=== PATIENT | male | born 1980 | race Two or more races ===

== ENCOUNTER 2021-04-28 03:31 | Inpatient (IN) | payer MEDICAID ==
[~2021-04-28] VITALS: Ht 175.3 cm; Wt 106.1 kg
--- NOTE | 2021-04-28 03:40 | NUR ---
BIBPA FROM SNF FOR C/O ABDOMINAL DISTENTION. - ABD PAIN. -N/V, LBM: YETSERDAY . PT CAME IN WITH A F/C IN PLACE DRAINING CLEAR YELLOW URINE. NOTED W/ A VERY DISTENTDED ABDOMEN, SWOLLEN FEET AND SCROTUM. PLACED ON AMONITOR W/ STABLE VS. WILL CONT TO MONITOR
--- NOTE | 2021-04-28 03:45 | NUR ---
PATIENT'S BLOOD IS COLLECTED AND SENT TO THE LAB
[2021-04-28 03:57] LABS: LYMPHOCYTES # (AUTO) 0.5 /CMM (0.8-4.8); MONOCYTES # (AUTO) 0.4 /CMM (0.1-1.30); NEUTROPHILS # (AUTO) 1.6 /CMM (1.8-8.9); WHITE BLOOD COUNT (AUTO) 2.6 K/uL (4.3-11.0)
--- NOTE | 2021-04-28 03:59 | NUR ---
PATIENT'S LINEN CHANGED AND PATIENT IS POSITIONED IN A COMFORTABLE WAY.
[2021-04-28 04:00] LABS: BASOPHILS % (AUTO) 0.9 % (0.0-2.0); EOSINOPHILS % (AUTO) 2.5 % (0.0-6.0); HEMATOCRIT 30 % (39-51); HEMOGLOBIN 9.8 g/dL (13.5-17.5); LYMPHOCYTES % (AUTO) 19.5 % (20.0-44.0); MEAN CORPUSCULAR HGB CONC 33 g/dl (31.0-36.0); MEAN CORPUSCULAR VOLUME 86 fL (80-96); MONOCYTES % (AUTO) 15.6 % (2.0-12.0); NEUTROPHILS % (AUTO) 61.5 % (43.0-81.0); RED BLOOD CELL COUNT(AUTO) 3.47 MIL/uL (4.5-6.0)
--- NOTE | 2021-04-28 04:02 | NUR ---
covid swab collected and sent to lab
[2021-04-28 04:03] LABS: PLATELET COUNT (AUTO) 37 /CMM (150-450)
[2021-04-28 04:10] LABS: CALCIUM, SERUM 7.8 mg/dL (8.5-10.1); CREATININE 0.7 mg/dL (0.6-1.3); POTASSIUM 3.8 mmol/L (3.5-5.1)
[2021-04-28 04:16] LABS: ALBUMIN 1.9 g/dL (3.4-5.0); BILIRUBIN,DIRECT 0.5 mg/dL (0.0-0.2); TOTAL PROTEIN, SERUM 6.6 g/dL (6.4-8.2)
--- NOTE | 2021-04-28 04:40 | NUR ---
PANEL PAGED PER ER MD ORDER.
[2021-04-28 04:50] LABS: EOSINOPHILS % (MANUAL) 4 % (0-4); LYMPHOCYTES % (MANUAL) 15 % (16-48); MONOCYTES % (MANUAL) 12 % (0-11.0); NEUTROPHILS % (MANUAL) 69 (42-76)
[2021-04-28] MEDS ORDERED: LORAZEPAM INJ 2 MG/ML VIAL ONE (05:37)
[2021-04-28] MEDS ORDERED: ALBUMIN 25% 100 ML IV ONE (05:44)
[2021-04-28] MEDS ORDERED: ALBUMIN 25% 12.5 GM/50 ML BOTTLE IV ONE (06:00)
[2021-04-28] MEDS ORDERED: LORAZEPAM INJ 2 MG/ML VIAL IV ONE (06:00)
--- NOTE | 2021-04-28 06:30 | NUR ---
Ke payton in [facility] - 04/28/21 at 0631 by SP [id number] CALLED REGARDING TRANSPORT ([facility]) ETA 2HRS.
--- NOTE | 2021-04-28 06:40 | NUR ---
PT WAS REPORISTIONED IN BED, REMAINED CLEAN, COMFORTABLE AND DRY, SIDERAILS UP. CALL LIGHT WITHIN REACH. WILL CONT TO MONITOR,
[2021-04-28] MEDS ORDERED: LORA-259 PO (07:42)
[2021-04-28] MEDS ORDERED: FURO-144 PO (07:42)
[2021-04-28] MEDS ORDERED: ONDA4TAB11 PO (07:42)
[2021-04-28] MEDS ORDERED: CALC355O18 PO (07:42)
[2021-04-28] MEDS ORDERED: SPIR50TA5 PO (07:42)
[2021-04-28] MEDS ORDERED: POLY17PO4 PO (07:42)
[2021-04-28] MEDS ORDERED: FAMO20TA8 PO (07:42)
[2021-04-28] MEDS ORDERED: BISA10SU11 RC (07:42)
[2021-04-28] MEDS ORDERED: NA P133E RC (07:42)
[2021-04-28] MEDS ORDERED: RIFA550T PO (07:42)
[2021-04-28] MEDS ORDERED: ZOLP5TAB2 PO (07:42)
[2021-04-28] MEDS ORDERED: LOPE2TAB25 PO (07:42)
[2021-04-28] MEDS ORDERED: LACT10SO3 PO (07:42)
[2021-04-28] MEDS ORDERED: CYCL5TAB PO (07:42)
[2021-04-28] MEDS ORDERED: MAGN400O6 PO (07:42)
[2021-04-28] MEDS ORDERED: [UNRECOGNIZED DRUG - CODE] PO (07:42)
[2021-04-28] MEDS ORDERED: ACET325T53 PO (07:42)
[2021-04-28] MEDS ORDERED: CRAN425C6 PO (07:42)
[2021-04-28] MEDS ORDERED: OLAN2.5T3 PO (07:42)
--- NOTE | 2021-04-28 07:52 | NUR ---
PATIENT'S LEGS REPOSITIONED. PATIENT'S C/O ABDOMINAL AND FOOT PAIN. INFORMED DR. KIM.
[2021-04-28] MEDS ORDERED: HYDROCODONE/APAP 5/325MG TABLET ONE (07:59)
[2021-04-28] MEDS ORDERED: HYDROCODONE/APAP 5/325MG TABLET PO ONE (08:00)
--- NOTE | 2021-04-28 08:23 | NUR ---
REPORT GIVEN TO SOON RN FOR NIYA.
[2021-04-28] MEDS ORDERED: ACETAMINOPHEN 325 MG TABLET PO PRN (10:30)
[2021-04-28] MEDS ORDERED: ONDANSETRON HCL/PF 4 MG/2 ML VIAL IVP PRN (10:30)
[2021-04-28] MEDS ORDERED: MORPHINE SULFATE INJ 2 MG/ML DISP.SYRIN IV PRN (10:30)
[2021-04-28] MEDS ORDERED: MAG HYDROX/AL HYDROX/SIMETH 30 ML UDC PO PRN (10:30)
[2021-04-28] MEDS ORDERED: MAGNESIUM HYDROXIDE 30 ML UDC PO PRN (10:30)
[2021-04-28] MEDS ORDERED: ENOXAPARIN SODIUM 40 MG/0.4 ML DISP.SYRIN SQ SCH (10:30)
[2021-04-28] MEDS ORDERED: CYCLOBENZAPRINE 10 MG TABLET PO PRN (11:30)
[2021-04-28 12:07] VITALS: BP 132/90
[2021-04-28 12:23] VITALS: BP 132/90
[2021-04-28 12:28] VITALS: BP 132/90
[2021-04-28] MEDS ORDERED: FUROSEMIDE 20 MG/2 ML VIAL IV ONE (12:30)
--- NOTE | 2021-04-28 13:17 | NUR ---
paracentesis 6 liters obtained,Angelito SCHWARTZ stated that no studies this was therapeutic not diagnostic primary nurse was notified
[2021-04-28 13:24] VITALS: BP 130/89
[2021-04-28 13:25] VITALS: BP 132/88
--- NOTE | 2021-04-28 15:42 | NUR ---
RN Notes Received patient on gurney transfer to bed, paracentisis performed by isauro and 6 L withdrawn, had no orders for labs or diagnosits of fluid, fluid placed into Bio Hazard Red Bags and Red Bio Hazard Trash can , resident requested pain medication and give one [place] effective, patient rested peacefully after procedure and was able to use call light and phone to make needs known, no SOB , no distress noted, given liquids for rehydration, compliant no aspirations noted, call light in reach will continue to monitor VS which were being performed and all VS remaining in a base line range, Father contacted to ask to 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
[2021-04-28] MEDS: RIFAXIMIN 550 MG TABLET PO SCH (17:21)
[2021-04-28] MEDS: OLANZAPINE 2.5 MG TABLET PO SCH (17:24)
[2021-04-28] MEDS: LACTULOSE 10 G/15 ML UDC (PYXIS) PO SCH (17:25)
[2021-04-28 20:00] VITALS: BP 135/89
[2021-04-28] MEDS: ZOLPIDEM TARTRATE 5 MG TABLET PO SCH (21:20)
--- NOTE | 2021-04-29 03:46 | NUR ---
RN notes In bed resting comfortably with no distress noted. Breathing even and unlabored. On 2 lpm O2 via nasal cannula tolerating well. Alert and oriented, with difficulty of speaking but well understood. Complaining of generalized pain, reposition for comfort. Noted with distended abdomen. No significant change of condition. Kept clean and dry. Will endorse to next shift for continuity of care.
[2021-04-29 04:00] VITALS: BP 123/78
[2021-04-29] MEDS: LORAZEPAM 1 MG TABLET PO PRN ×2 (06:18→12:59)
--- NOTE | 2021-04-29 06:18 | NUR ---
RN notes Patient requested ativan, he feels he is having an anxiety attack. Gave 0.5mg ativan tablet, with help.
[2021-04-29 06:39] LABS: CALCIUM, SERUM 7.9 mg/dL (8.5-10.1); CREATININE 0.6 mg/dL (0.6-1.3); MAGNESIUM 1.7 mg/dL (1.8-2.4)
[2021-04-29 06:40] LABS: BASOPHILS % (AUTO) 0.8 % (0.0-2.0); EOSINOPHILS % (AUTO) 3.8 % (0.0-6.0); HEMATOCRIT 28 % (39-51); LYMPHOCYTES # (AUTO) 0.3 /CMM (0.8-4.8); LYMPHOCYTES % (AUTO) 27.2 % (20.0-44.0); MEAN CORPUSCULAR HGB CONC 33 g/dl (31.0-36.0); MEAN CORPUSCULAR VOLUME 87 fL (80-96); MONOCYTES # (AUTO) 0.2 /CMM (0.1-1.30); MONOCYTES % (AUTO) 16.4 % (2.0-12.0); NEUTROPHILS # (AUTO) 0.6 /CMM (1.8-8.9); NEUTROPHILS % (AUTO) 51.8 % (43.0-81.0); RED BLOOD CELL COUNT(AUTO) 3.16 MIL/uL (4.5-6.0)
[2021-04-29 06:49] LABS: WHITE BLOOD COUNT (AUTO) 1.2 K/uL (4.3-11.0)
[2021-04-29 06:50] LABS: PLATELET COUNT (AUTO) 34 /CMM (150-450)
--- NOTE | 2021-04-29 06:51 | NUR ---
RN notes ultrasound technol called regarding critical lab results for WBC = 1.0 and Platelet count = 1
--- NOTE | 2021-04-29 07:41 | NUR ---
RN Notes RECEIVED PATIENT IN BED AWAKE ALERT X 3, ABLE TO MAKE NEEDS KNOWN, STATED VERY HUNGRY - ENDORSED TO PARK WORKER SUPERVISOR DORY TO FEED SONY, HEALTHY APPETITE, I HELPED TO FEED NO ASPIRATIONS NOTED, HOB RAISED 90 %, ALL SAFETY MEASURES ENFORCED AND EDUCATED PATIENT NOT TO TRY TO GET UP WITHOUT HELP, CALL LIGHT IN REACH, WILL CONTINUE TO MONITOR LOW WBC AND LOW PLT COUNT NOTED.
--- NOTE | 2021-04-29 07:49 | NUR ---
RN NOTES PATIENT NOW ENDORSED TO ANOTHER RN CATHY , NOW ASSIGNED TO PATIENT 119
--- NOTE | 2021-04-29 07:50 | NUR ---
RN NOTES RECEIVED REPORT FROM CHARANJIT PARKER. WILL CONTINUE TO MONITOR FOR NIYA.
[2021-04-29] MEDS: SPIRONOLACTONE 25 MG TABLET PO SCH (08:56)
[2021-04-29] MEDS: PANTOPRAZOLE 40 MG TABLET.DR PO SCH (08:56)
[2021-04-29] MEDS: RIFAXIMIN 550 MG TABLET PO SCH ×2 (08:57→17:00)
[2021-04-29] MEDS: LACTULOSE 10 G/15 ML UDC (PYXIS) PO SCH ×2 (08:57→17:00)
[2021-04-29] MEDS: OLANZAPINE 2.5 MG TABLET PO SCH ×2 (08:57→17:00)
[2021-04-29 09:22] LABS: EOSINOPHILS % (MANUAL) 1 % (0-4); LYMPHOCYTES % (MANUAL) 12 % (16-48); MONOCYTES % (MANUAL) 13 % (0-11.0); NEUTROPHILS % (MANUAL) 74 (42-76)
[2021-04-29] MEDS: HYDROCODONE/APAP 5/325MG TABLET PO PRN ×2 (09:52→20:18)
[2021-04-29] MEDS: FUROSEMIDE 40 MG/4 ML VIAL IV SCH (11:43)
[2021-04-29 12:00] VITALS: BP 108/64
[2021-04-29] MEDS: Magnesium 1GM/D5W 100ML PREMIX 100 ML IV SCH ×2 (13:04→14:11)
--- NOTE | 2021-04-29 18:57 | NUR ---
RN CLOSING NOTES NO SIGNIFICANT CHANGES THROUGHOUT THE SHIFT. NO SOB OR ANY DISTRESS. NO PAIN REPORTED AT THIS TIME. IN STABLE CONDITION. ALL DUE MEDS GIVEN. NEEDS ATTENDED. SAFETY MEASURES STILL IN PLACE. WILL ENDORSE TO NIGHT NURSE FOR NIYA.
--- NOTE | 2021-04-29 19:15 | NUR ---
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 NO ANSWER. TRIED 3X. STILL NO ANSWER. VOICE MESSAGE UNAVAILABLE. ENDORSED TO NIGHT RN.
--- NOTE | 2021-04-29 19:30 | NUR ---
RN NOTE RECEIVED IN BED, AO X 3-4, SLOW SPEECH, BUT AWARE OF SITUATION, IN NO S/SX OF ACUTE DISTRESS AT THIS TIME, SATURATION AT 97% ON 2L VIA NC, HR IS 94. NOTED IV SITE AT RFA 18G, PATENT AND FLUSHING WELL, NO S/S OF INFECTION OR INFILTRATION. MUNGUIA CATHETER CONNECTED TO URINE BAG IN PLACE, DRAINING TO A CLEAR YELLOW OUTPUT. SAFETY MEASURES IMPLEMENTED. PATIENT BED ALARM IS ON. HEAD OF BED ELEVATED. BED IS LOCKED, IN LOWEST POSITION AND SIDE RAILS UP. CALL LIGHT WITHIN REACH OF THE PATIENT. WILL CONTINUE TO MONITOR AND REASSESS FOR ANY CHANGES.
[2021-04-29 20:00] VITALS: BP 139/92
[2021-04-29] MEDS: ZOLPIDEM TARTRATE 5 MG TABLET PO SCH (22:27)
[2021-04-30] MEDS: HYDROCODONE/APAP 5/325MG TABLET PO PRN ×2 (02:04→08:19)
[2021-04-30 04:00] VITALS: BP 143/85
[2021-04-30] MEDS: LORAZEPAM 1 MG TABLET PO PRN ×4 (06:18→23:08)
[2021-04-30 06:45] LABS: BASOPHILS % (AUTO) 0.2 % (0.0-2.0); EOSINOPHILS % (AUTO) 1.8 % (0.0-6.0); HEMATOCRIT 29 % (39-51); HEMOGLOBIN 9.6 g/dL (13.5-17.5); LYMPHOCYTES # (AUTO) 0.4 /CMM (0.8-4.8); LYMPHOCYTES % (AUTO) 14.4 % (20.0-44.0); MEAN CORPUSCULAR HGB CONC 33 g/dl (31.0-36.0); MEAN CORPUSCULAR VOLUME 87 fL (80-96); MONOCYTES # (AUTO) 0.4 /CMM (0.1-1.30); MONOCYTES % (AUTO) 16.5 % (2.0-12.0); NEUTROPHILS # (AUTO) 1.7 /CMM (1.8-8.9); NEUTROPHILS % (AUTO) 67.1 % (43.0-81.0); RED BLOOD CELL COUNT(AUTO) 3.35 MIL/uL (4.5-6.0); WHITE BLOOD COUNT (AUTO) 2.6 K/uL (4.3-11.0)
[2021-04-30 06:52] LABS: CALCIUM, SERUM 8.4 mg/dL (8.5-10.1); CREATININE 0.7 mg/dL (0.6-1.3); MAGNESIUM 1.7 mg/dL (1.8-2.4); POTASSIUM 4.1 mmol/L (3.5-5.1)
[2021-04-30 07:14] LABS: PLATELET COUNT (AUTO) 36 /CMM (150-450)
--- NOTE | 2021-04-30 08:00 | NUR ---
RN OPENING NOTE RECEIVED PATIENT IN BED, AO X 3-4, ABLE TO RESPONDS ALL STIMULI. SKIN IS WARM TO TOUCH KEEP CLEAN/DRY, INTACT IV SITE, PATIENT IN MUNGUIA. RESPIRATORY EVEN AND UNLABORED IN ROOM AIR, NO DISTRESS OBSERVED. KEPT ELEVATED HOB FOR ENSURE AIRWAY AND ASPIRATION PRECAUTION, ALSO LOWEST BED POSITION FOE SAFETY. CALL LIGHT WITHIN REACH, WILL CONTINUE TO MONITOR.
[2021-04-30] MEDS: RIFAXIMIN 550 MG TABLET PO SCH ×2 (08:19→17:03)
[2021-04-30] MEDS: OLANZAPINE 2.5 MG TABLET PO SCH ×2 (08:20→17:03)
[2021-04-30] MEDS: PANTOPRAZOLE 40 MG TABLET.DR PO SCH (08:20)
[2021-04-30] MEDS: SPIRONOLACTONE 25 MG TABLET PO SCH (08:20)
[2021-04-30] MEDS: FUROSEMIDE 40 MG/4 ML VIAL IV SCH (08:25)
[2021-04-30] MEDS: LACTULOSE 10 G/15 ML UDC (PYXIS) PO SCH ×2 (08:26→17:00)
[2021-04-30 09:04] LABS: EOSINOPHILS % (MANUAL) 2 % (0-4); LYMPHOCYTES % (MANUAL) 11 % (16-48); MONOCYTES % (MANUAL) 16 % (0-11.0); NEUTROPHILS % (MANUAL) 71 (42-76)
--- NOTE | 2021-04-30 09:30 | NUR ---
PATIENT REFUSED LACTULOSE AND MD SAMARIA MADE AWARE,
--- NOTE | 2021-04-30 10:37 | NUR ---
PATIENT C/O DISCOMFORT WHEN PATIENT URINATE, MD AWARE AND PLACED ORDER UA. NOTED AND CARRIED OUT.
[2021-04-30] MEDS: Magnesium 1GM/D5W 100ML PREMIX 100 ML IV SCH ×2 (11:31→12:22)
[2021-04-30 12:00] VITALS: BP 144/96
[2021-04-30 13:37] LABS: COLOR,URINE YELLOW (YELLOW)
[2021-04-30 13:38] LABS: PROTEIN,URINE 100 mg/dl (NEGATIVE); UGLUCOSE NEGATIVE (NEGATIVE)
[2021-04-30 13:39] LABS: BILIRUBIN,URINE NEGATIVE (NEGATIVE)
[2021-04-30 13:40] LABS: NITRITE, URINE POSITIVE (NEGATIVE); UROBILINOGEN,URINE 0.2 EU/dL (0.2)
[2021-04-30 13:41] LABS: LEUKOCYTE ESTERASE ,URINE MODERATE (NEGATIVE)
[2021-04-30 13:51] LABS: BACTERIA,URINE 4+ /HPF (None Seen); RBC,URINE F /HPF (0-2); WBC,URINE F /HPF (0-3)
[2021-04-30 13:52] LABS: SQUAMOUS EPITHELIAL CELL,UR Rare /HPF (None Seen)
--- NOTE | 2021-04-30 16:52 | NUR ---
PATIENT CONFUSE AND REMOVED IV LINE AND PULLING PUT MUNGUIA CAHTE, ALSO ATTEMPTING OUT OF THE BED. RECEIVED SOFT WRIST RESTRAINTS. PATIENT RECEIVED LOVENOX FOR DVT PROPHYLAXIS.
[2021-04-30] MEDS: CEFTRIAXONE 1 G in IV D5W 50 ML IV SCH (17:03)
--- NOTE | 2021-04-30 18:27 | NUR ---
RN CLOSING NOTE PATIENT RESTING IN BED, REMAINS AO X 3-4, DOES NO APPEARS DISTRESS OR DISCOMFORT. SKIN IS WARM TOUCH, KEEP CLEAN/DRY. RESPIRATORY EVEN AND UNLABORED IN ROOM AIR O2SAT 95%. KEPT ELEVATED HOB FOR ENSURE AIRWAY AND ASPIRATION PRECAUTION, ALSO LOWEST BED POSITION FOR SAFETY. CALL LIGHT WITHIN REACH, WILL ENDORSE WAX BLENDER.
--- NOTE | 2021-04-30 19:00 | NUR ---
RN NOTE RECEIVED IN BED, AO X 3-4, SLOW SPEECH, IN NO S/SX OF ACUTE DISTRESS AT THIS TIME, SATURATION AT 97% ON 2L VIA NC, HR IS 94. NOTED IV SITE AT RFA 18G, PATENT AND FLUSHING WELL, NO S/S OF INFECTION OR INFILTRATION. MUNGUIA CATHETER CONNECTED TO URINE BAG IN PLACE, DRAINING TO A CLEAR YELLOW OUTPUT. SAFETY MEASURES IMPLEMENTED. PATIENT BED ALARM IS ON. HEAD OF BED ELEVATED. BED IS LOCKED, IN LOWEST POSITION AND SIDE RAILS UP. CALL LIGHT WITHIN REACH OF THE PATIENT. WILL CONTINUE TO MONITOR AND REASSESS FOR ANY CHANGES.
[2021-04-30 20:00] VITALS: BP 131/83
[2021-04-30] MEDS: ZOLPIDEM TARTRATE 5 MG TABLET PO SCH (21:17)
[2021-05-01] MEDS: HYDROCODONE/APAP 5/325MG TABLET PO PRN ×2 (00:50→13:07)
[2021-05-01 04:00] VITALS: BP 138/62
[2021-05-01 06:02] LABS: BASOPHILS % (AUTO) 0.3 % (0.0-2.0); EOSINOPHILS % (AUTO) 1.7 % (0.0-6.0); HEMATOCRIT 25 % (39-51); HEMOGLOBIN 8.3 g/dL (13.5-17.5); LYMPHOCYTES # (AUTO) 0.5 /CMM (0.8-4.8); LYMPHOCYTES % (AUTO) 17.4 % (20.0-44.0); MEAN CORPUSCULAR HGB CONC 33 g/dl (31.0-36.0); MEAN CORPUSCULAR VOLUME 86 fL (80-96); MONOCYTES # (AUTO) 0.5 /CMM (0.1-1.30); MONOCYTES % (AUTO) 17.6 % (2.0-12.0); NEUTROPHILS # (AUTO) 1.8 /CMM (1.8-8.9); RED BLOOD CELL COUNT(AUTO) 2.89 MIL/uL (4.5-6.0); WHITE BLOOD COUNT (AUTO) 2.8 K/uL (4.3-11.0)
[2021-05-01 06:24] LABS: PLATELET COUNT (AUTO) 32 /CMM (150-450)
[2021-05-01 06:46] LABS: CALCIUM, SERUM 7.9 mg/dL (8.5-10.1); CREATININE 0.9 mg/dL (0.6-1.3); MAGNESIUM 1.7 mg/dL (1.8-2.4); POTASSIUM 4.2 mmol/L (3.5-5.1)
[2021-05-01 08:03] LABS: EOSINOPHILS % (MANUAL) 4 % (0-4); LYMPHOCYTES % (MANUAL) 12 % (16-48); MONOCYTES % (MANUAL) 16 % (0-11.0); NEUTROPHILS % (MANUAL) 68 (42-76)
[2021-05-01] MEDS: OLANZAPINE 2.5 MG TABLET PO SCH ×2 (08:11→16:21)
[2021-05-01] MEDS: RIFAXIMIN 550 MG TABLET PO SCH ×2 (08:11→16:21)
[2021-05-01] MEDS: PANTOPRAZOLE 40 MG TABLET.DR PO SCH (08:11)
[2021-05-01] MEDS: SPIRONOLACTONE 25 MG TABLET PO SCH (08:11)
[2021-05-01] MEDS: LACTULOSE 10 G/15 ML UDC (PYXIS) PO SCH ×2 (08:15→16:22)
[2021-05-01] MEDS: FUROSEMIDE 40 MG/4 ML VIAL IV SCH (08:16)
--- NOTE | 2021-05-01 08:17 | NUR ---
ms rn note Patient in bed alert oriented, on ra at this time no sob noted, rt fa hl not working well , having breakfast, fed by rn new hl on rt fa ambrose 22 inserted with good blood return, bed in lowest and locked position, call light within reach , with Garner cath to gravity ,refused to have lactulose and Lasix, will inform to md ,bed in lowest and locked position, will cont to monitor closely
--- NOTE | 2021-05-01 09:44 | NUR ---
MS RN NOTE DOPPLER STUDY DONE ORDERED, WILL F\U WITH RESULT
[2021-05-01] MEDS: LORAZEPAM 1 MG TABLET PO PRN ×2 (10:07→17:09)
--- NOTE | 2021-05-01 11:00 | NUR ---
ms rn note Ativan po give for anxiety, bp 1312/71, saturation 95% ,will monitor
[2021-05-01] MEDS: Magnesium 1GM/D5W 100ML PREMIX 100 ML IV SCH ×2 (11:34→12:37)
--- NOTE | 2021-05-01 14:10 | NUR ---
MS RN NOTE DEVON RN LONE LEAD LINEMAN AT BEDSIDE NOTIFIED THAT REFUSING LASIX AND LACTULOSE ALSO HAVE EARLIER ATIVAN AND NORCO GIVEN ORDERED
[2021-05-01 16:00] VITALS: BP 145/83
[2021-05-01] MEDS: CEFTRIAXONE 1 G in IV D5W 50 ML IV SCH (16:21)
--- NOTE | 2021-05-01 17:26 | NUR ---
ms rn note rt fa ambrose 20 hl inserted with good blood return , also Ativan 0.5 mg po given as ordered for anxiety bp 145/83 saturation 94% ,will cont to monitor turn reposition, all needs attended
--- NOTE | 2021-05-01 18:37 | NUR ---
MS RN NOTE PATIENT IN BED ,ALERT ORIENTED ON RA , WITH MUNGUIA CATH TO GRAVITY WITH YELLOW ABRIL COLOR , RT FA HL INTACT AND FLUSHED WELL , BED IN LOWEST AND LOCKED POSITION , CALL LIGHT WITHIN REACH,NO SOB NOTED AT THIS TIME, WILL CONT TO MONITOR
--- NOTE | 2021-05-01 19:50 | NUR ---
RN NOTE RECEIVED PT IN BED A/A/O X3, ON RA SATING 95%, UNLABORED BREATHING. SAFETY MEASURES IN PLACE.
[2021-05-01 20:00] VITALS: BP 146/77
[2021-05-01] MEDS: ZOLPIDEM TARTRATE 5 MG TABLET PO SCH (21:25)
[2021-05-02] MEDS: LORAZEPAM 1 MG TABLET PO PRN ×2 (00:02→11:45)
[2021-05-02 04:00] VITALS: BP 130/72
[2021-05-02 05:52] LABS: BASOPHILS % (AUTO) 0.4 % (0.0-2.0); EOSINOPHILS % (AUTO) 1.6 % (0.0-6.0); HEMATOCRIT 26 % (39-51); HEMOGLOBIN 8.4 g/dL (13.5-17.5); LYMPHOCYTES # (AUTO) 0.4 /CMM (0.8-4.8); LYMPHOCYTES % (AUTO) 15.9 % (20.0-44.0); MEAN CORPUSCULAR HGB CONC 33 g/dl (31.0-36.0); MEAN CORPUSCULAR VOLUME 87 fL (80-96); MONOCYTES # (AUTO) 0.4 /CMM (0.1-1.30); MONOCYTES % (AUTO) 16.4 % (2.0-12.0); NEUTROPHILS # (AUTO) 1.5 /CMM (1.8-8.9); NEUTROPHILS % (AUTO) 65.7 % (43.0-81.0); RED BLOOD CELL COUNT(AUTO) 2.98 MIL/uL (4.5-6.0); WHITE BLOOD COUNT (AUTO) 2.3 K/uL (4.3-11.0)
[2021-05-02 06:26] LABS: PLATELET COUNT (AUTO) 31 /CMM (150-450)
[2021-05-02 06:32] LABS: CALCIUM, SERUM 7.8 mg/dL (8.5-10.1); CREATININE 0.8 mg/dL (0.6-1.3); MAGNESIUM 1.8 mg/dL (1.8-2.4)
--- NOTE | 2021-05-02 06:39 | NUR ---
RECEIVED CRITICAL LAB PLT [address] HARTMAN NO NEW ORDER AT THIS TIME.
--- NOTE | 2021-05-02 07:26 | NUR ---
PT REMAINED STABLE THROUGHOUT THE SHIFT. REPORT GIVEN TO ONCOMING SHIFT FOR NIYA.
--- NOTE | 2021-05-02 07:35 | NUR ---
RN NOTE PATIENT IS IN BED WITH HOB AT SEMI FOWLERS POSITION. PATIENT IS ON ROOM AIR WITH NO SIGNS OF LABORED BREATHING. PATIENT IS AOX3. MUNGUIA IS IN PLACE. RFA 20 IS PATENT AND INTACT. BED IS LOCKED IN THE LOWEST POSITION, 3 GUARD RAILS RAISED, CALL VELASCO WITHIN REACH AND ALL HOSPITAL SAFETY PRECAUTIONS ARE BEING FOLLOWED. WILL CONTINUE TO MONITOR THROUGHOUT SHIFT.
[2021-05-02 08:00] VITALS: BP 124/92
[2021-05-02] MEDS: RIFAXIMIN 550 MG TABLET PO SCH (08:17)
[2021-05-02] MEDS: PANTOPRAZOLE 40 MG TABLET.DR PO SCH (08:18)
[2021-05-02] MEDS: OLANZAPINE 2.5 MG TABLET PO SCH (08:18)
[2021-05-02] MEDS: SPIRONOLACTONE 25 MG TABLET PO SCH (08:27)
[2021-05-02] MEDS: FUROSEMIDE 40 MG/4 ML VIAL IV SCH (08:27)
[2021-05-02] MEDS: LACTULOSE 10 G/15 ML UDC (PYXIS) PO SCH (08:28)
--- NOTE | 2021-05-02 08:28 | NUR ---
rn note patient refused lactulose, lasix, and spironolactone. educated patient on importance of medication adherence and potential side effects on noncompliance. patient still refused.
[2021-05-02 11:16] LABS: BAND % (MANUAL) 3 % (0.0-5.0); EOSINOPHILS % (MANUAL) 2 % (0-4); LYMPHOCYTES % (MANUAL) 14 % (16-48); MONOCYTES % (MANUAL) 12 % (0-11.0); NEUTROPHILS % (MANUAL) 69 (42-76)
[2021-05-02] MEDS: HYDROCODONE/APAP 5/325MG TABLET PO PRN (13:33)
--- NOTE | 2021-05-02 13:46 | NUR ---
rn note report called to pattie fregoso. awaiting ambulance pickup.
[2021-05-02] MEDS ORDERED: CEFT1VIA15 IV (14:18)
== END 2021-05-02 15:38 ==
LOC: ER 03:36 → MEDSG1 08:21
PROVIDERS: ADMIT Nurse Practitioner Family; ATTEND Nurse Practitioner Family
PROC: 0W9G3ZZ Drainage of Peritoneal Cavity, Percutaneous Approach (ICD-10-PCS; principal; 2021-04-28)
DX: K74.60 Unspecified cirrhosis of liver (principal); E43 Unspecified severe protein-calorie malnutrition; D69.6 Thrombocytopenia, unspecified; E72.20 Disorder of urea cycle metabolism, unspecified; K76.6 Portal hypertension; E83.51 Hypocalcemia; G20 Parkinson's disease; E83.01 Wilson's disease; R18.8 Other ascites; E87.1 Hypo-osmolality and hyponatremia; F25.9 Schizoaffective disorder, unspecified; D64.9 Anemia, unspecified; Z86.73 Personal history of transient ischemic attack (TIA), and cerebral infarction without residual deficits; Z68.33 Body mass index [BMI] 33.0-33.9, adult; N39.0 Urinary tract infection, site not specified; Z20.822 Contact with and (suspected) exposure to COVID-19; R13.10 Dysphagia, unspecified; M62.562 Muscle wasting and atrophy, not elsewhere classified, left lower leg; M62.561 Muscle wasting and atrophy, not elsewhere classified, right lower leg; Z79.899 Other long term (current) drug therapy
CPT/HCPCS: 36415; 76942-TC; 80048-TC; 80076-TC; 81001; 82140-TC; 83735-TC; 85025-TC; 85730-TC; 87081-TC; 87086-TC; 92526; 92611-TC; 93970-TC; C9803; G0378; J0696; J1940; J2060; J3475; J7050; J7060; P9047

== ENCOUNTER 2021-06-23 13:19 | Inpatient (IN) | payer MEDICAID, OTHER ==
[~2021-06-23] VITALS: Ht 167.6 cm; Wt 88.0 kg
[~2021-06-23 13:19] MED LIST: ACET325T53 PO; BISA10SU11 RC; CALC355O18 PO; CEFT1VIA15 IV; CRAN425C6 PO; CYCL5TAB PO; FAMO20TA8 PO; FURO-144 PO; LACT10SO3 PO; LOPE2TAB25 PO; LORA-259 PO; MAGN400O6 PO; NA P133E RC; OLAN2.5T3 PO; ONDA4TAB11 PO; POLY17PO4 PO; RIFA550T PO; SPIR50TA5 PO; ZOLP5TAB2 PO; [UNRECOGNIZED DRUG - CODE] PO
--- NOTE | 2021-06-23 13:40 | NUR ---
STARTED IV ON RFA G 18, BLOOD SPECIMEN COLLECTED AND SENT TO THE LAB
--- NOTE | 2021-06-23 13:43 | NUR ---
THE PATIENT IS BIB PA FROM SNF FOR FOR ABDOMINAL PAIN, NAUSEA AND VOMITTING X LAST NIGHT. ABDOMEN NOTED TO BE DISTEDED. IN ROOM AIR AND DENIES SOB. RESPIRATION REGULAR AND UNLABORED. WILL CONTINUE TO MONITOR
[2021-06-23] MEDS ORDERED: HYDR-3976 PO (13:46)
--- NOTE | 2021-06-23 14:02 | NUR ---
UNABLE TO COLLECT URINE DUE TO PATIENT BEING INCONTINENT. DR ADAMS AWARE AND PER MD NO NEED TO DO IN AND OUT CATHETER AND NO NEED TO COLLECT URINE.
[2021-06-23 14:05] LABS: HEMOGLOBIN 11.1 g/dL (13.5-17.5); LYMPHOCYTES # (AUTO) 0.4 K/uL (0.8-4.8)
[2021-06-23 14:09] LABS: BASOPHILS % (AUTO) 0.2 % (0.0-2.0); EOSINOPHILS % (AUTO) 0.2 % (0.0-6.0); HEMATOCRIT 34 % (39-51); LYMPHOCYTES % (AUTO) 6.5 % (20.0-44.0); MEAN CORPUSCULAR HGB CONC 33 g/dl (31.0-36.0); MEAN CORPUSCULAR VOLUME 87 fL (80-96); MONOCYTES # (AUTO) 0.7 K/uL (0.1-1.30); MONOCYTES % (AUTO) 11.3 % (2.0-12.0); NEUTROPHILS # (AUTO) 5.3 K/uL (1.8-8.9); NEUTROPHILS % (AUTO) 81.8 % (43.0-81.0); RED BLOOD CELL COUNT(AUTO) 3.84 MIL/uL (4.5-6.0); WHITE BLOOD COUNT (AUTO) 6.5 K/uL (4.3-11.0)
[2021-06-23 14:12] LABS: PLATELET COUNT (AUTO) 36 K/uL (150-450)
[2021-06-23 14:24] LABS: CALCIUM, SERUM 8.4 mg/dL (8.5-10.1); CARBON DIOXIDE 25 mmol/L (21-32); CHLORIDE 106 mmol/L (98-107); CREATININE 0.7 mg/dL (0.6-1.3); GLUCOSE 105 mg/dL (74-106); POTASSIUM 3.1 mmol/L (3.5-5.1); SODIUM SERUM 140 mmol/L (136-145); UREA NITROGEN, BLOOD 25 mg/dL (7-18)
[2021-06-23 14:26] LABS: SERUM AMMONIA 28 umol/L (11-32)
[2021-06-23 14:30] LABS: ALANINE AMINOTRANSFERASE 34 U/L (12-78); ALKALINE PHOSPHATASE 200 U/L (46-116); ASPARTATE AMINOTRANSFERASE 50 U/L (15-37); BILIRUBIN,DIRECT 2.1 mg/dL (0.0-0.2); BILIRUBIN,TOTAL 3.7 mg/dL (0.2-1.0); LIPASE 168 U/L (73-393); TOTAL PROTEIN, SERUM 7.1 g/dL (6.4-8.2)
--- NOTE | 2021-06-23 15:06 | NUR ---
PARACENTESIS NOT PERFORMED DUE TO LOW PLATLET COUNT, ER DR. ADAMS IS AWARE
--- NOTE | 2021-06-23 15:08 | NUR ---
THE PATIENT IS TAKEN TO CT
--- NOTE | 2021-06-23 15:09 | NUR ---
ZOFRAN 4 MG IV ONCE PER DR ADAMS. THE ORDER READ BACK, VERIFIED AND NOTED.
[2021-06-23 15:10] LABS: LYMPHOCYTES % (MANUAL) 9 % (16-48); MONOCYTES % (MANUAL) 9 % (0-11.0); NEUTROPHILS % (MANUAL) 82 (42-76)
--- NOTE | 2021-06-23 15:16 | NUR ---
THE PATIENT IS BACK FROM CT IN STABLE CONDITION.
[2021-06-23] MEDS ORDERED: ONDANSETRON HCL/PF 4 MG/2 ML VIAL ONE (15:18)
[2021-06-23] MEDS ORDERED: ONDANSETRON HCL/PF 4 MG/2 ML VIAL IV ONE (15:30)
[2021-06-23] MEDS ORDERED: NA PHOS,M-B/NA PHOS,DI-BA 1 EA ENEMA RC PRN (16:00)
[2021-06-23] MEDS ORDERED: BISACODYL SUPP (10 MG) 10 MG/SUPP.RECT SUPP.RECT RC PRN (16:00)
[2021-06-23] MEDS ORDERED: POLYETHYLENE GLYCOL 3350 17 GM POWD.PACK PO PRN (16:00)
[2021-06-23] MEDS ORDERED: HOME MED MISCELLANEOUS XX SCH (16:00)
[2021-06-23] MEDS ORDERED: ALBUMIN 25% 12.5 GM/50 ML BOTTLE IV PRN (16:00)
[2021-06-23] MEDS ORDERED: Z GUARD REMEDY 2 OZ OINT TP PRN (16:00)
--- NOTE | 2021-06-23 16:07 | NUR ---
COVID SWAB DOBE AND SENT TO THE LAB
[2021-06-23] MEDS ORDERED: LOPERAMIDE HCL (2 MG CAP) 2 MG CAPSULE PO PRN (16:30)
[2021-06-23] MEDS ORDERED: MAG HYDROX/AL HYDROX/SIMETH 30 ML UDC PO PRN (16:30)
--- NOTE | 2021-06-23 16:34 | NUR ---
room 108
--- NOTE | 2021-06-23 16:39 | NUR ---
REPORT GIVEN TO NURSE SCOTT
[2021-06-23] MEDS ORDERED: FAMOTIDINE (20 MG) 20 MG TABLET PO SCH (17:00)
[2021-06-23] MEDS: LACTULOSE 10 G/15 ML UDC (PYXIS) PO SCH (17:00)
--- NOTE | 2021-06-23 18:08 | NUR ---
THE PATIENT IS TRANSFERED TO ROOM 108 IN STABLE CONDITION AND PER POLICY.
--- NOTE | 2021-06-23 18:15 | NUR ---
MS RN ADMITTING NOTES RECEIVED PATIENT FROM ER IN MEDICALLY STABLE CONDITION. PATIENT ON ROOM AIR, A/O X2 TO 3. RFA IV ACCESS G #18 PRESENT AND INTACT. SAFETY PRECAUTIONS IN PLACE; BED IN LOW POSITION AND LOCKED, RAILS UP X2, CALL LIGHT WITHIN REACH. WILL CONTINUE TO MONITOR PATIENT.
[2021-06-23] MEDS: POTASSIUM CL. PREMIX PERIPHER. 50 ML IV SCH ×4 (18:40→22:08)
[2021-06-23] MEDS: FUROSEMIDE 40 MG TABLET PO SCH (18:40)
[2021-06-23] MEDS: RIFAXIMIN 550 MG TABLET PO SCH (18:40)
[2021-06-23] MEDS: OLANZAPINE 2.5 MG TABLET PO SCH (18:40)
--- NOTE | 2021-06-23 18:52 | NUR ---
MS RN CLOSING NOTES PATIENT RESTING COMFORTABLY. WILL ENDORSE TO PIPELINE EXECUTIVE NURSE FOR NIYA.
[2021-06-23 20:00] VITALS: BP 136/70
[2021-06-23] MEDS: ZOLPIDEM TARTRATE 5 MG TABLET PO SCH (22:00)
[2021-06-24] VITALS: BP 140/70
[2021-06-24 04:00] VITALS: BP 136/72
--- NOTE | 2021-06-24 06:20 | NUR ---
MS RN NOTES AWAKE & RESPONSIVE. NOT IN ANY DISTRESS. NO SOB NOTED. DENIES ANY PAIN OR DISCOMFORT AT THIS TIME. WITH IV-HL PATENT & INTACT. AM CARE DONE. MONITORED ACCORDINGLY. CALL LIGHT WITHIN REACH. BED IN LOWEST POSITION. SR UP X 3 WITH BED ALARM ON FOR SAFETY. WILL ENDORSE TO NEXT SHIFT.
[2021-06-24 06:53] LABS: CALCIUM, SERUM 7.8 mg/dL (8.5-10.1); CREATININE 0.7 mg/dL (0.6-1.3); MAGNESIUM 1.9 mg/dL (1.8-2.4); PHOSPHORUS 1.8 mg/dL (2.5-4.9); POTASSIUM 3.7 mmol/L (3.5-5.1)
[2021-06-24 06:57] LABS: BASOPHILS % (AUTO) 0.2 % (0.0-2.0); EOSINOPHILS % (AUTO) 1.3 % (0.0-6.0); HEMATOCRIT 28 % (39-51); HEMOGLOBIN 9.2 g/dL (13.5-17.5); LYMPHOCYTES # (AUTO) 0.4 K/uL (0.8-4.8); LYMPHOCYTES % (AUTO) 9.8 % (20.0-44.0); MEAN CORPUSCULAR HGB CONC 33 g/dl (31.0-36.0); MEAN CORPUSCULAR VOLUME 88 fL (80-96); MONOCYTES # (AUTO) 0.6 K/uL (0.1-1.30); MONOCYTES % (AUTO) 15.2 % (2.0-12.0); NEUTROPHILS # (AUTO) 2.7 K/uL (1.8-8.9); NEUTROPHILS % (AUTO) 73.5 % (43.0-81.0); RED BLOOD CELL COUNT(AUTO) 3.15 MIL/uL (4.5-6.0); WHITE BLOOD COUNT (AUTO) 3.7 K/uL (4.3-11.0)
[2021-06-24 07:04] LABS: PLATELET COUNT (AUTO) 30 K/uL (150-450)
--- NOTE | 2021-06-24 07:05 | NUR ---
RN NOTES DR. BRAEDEN BRODERICK MADE AWARE OF PLATELET COUNT - 30.
--- NOTE | 2021-06-24 07:10 | NUR ---
MS RN NOTES PLT 30. REPORT GIVEN TO ELENA Vazquez RN FOR CONTINUITY OF CARE. WILL CONTINUE TO MONITOR
[2021-06-24 08:00] VITALS: BP 125/70
[2021-06-24] MEDS: LACTULOSE 10 G/15 ML UDC (PYXIS) PO SCH ×4 (08:17→18:24)
[2021-06-24] MEDS: FUROSEMIDE 40 MG TABLET PO SCH ×2 (08:18→18:24)
[2021-06-24] MEDS: OLANZAPINE 2.5 MG TABLET PO SCH ×2 (08:18→18:24)
[2021-06-24] MEDS: RIFAXIMIN 550 MG TABLET PO SCH ×2 (08:18→18:24)
[2021-06-24] MEDS: PANTOPRAZOLE 40 MG TABLET.DR PO SCH (08:18)
[2021-06-24] MEDS: SPIRONOLACTONE 25 MG TABLET PO SCH (08:18)
[2021-06-24] MEDS ORDERED: SYPRINE PO SCH (09:00)
[2021-06-24] MEDS: LORAZEPAM 1 MG TABLET PO PRN ×2 (09:31→18:37)
[2021-06-24] MEDS ORDERED: K PHOS NEUTRAL 250 MG TABLET PO ONE (10:00)
[2021-06-24 10:24] LABS: EOSINOPHILS % (MANUAL) 1 % (0-4); LYMPHOCYTES % (MANUAL) 9 % (16-48); MONOCYTES % (MANUAL) 12 % (0-11.0); NEUTROPHILS % (MANUAL) 78 (42-76)
[2021-06-24 11:03] VITALS: BP 125/70
--- NOTE | 2021-06-24 11:18 | NUR ---
WOUND CARE CONSULT: REVIEWED CHART, NURSING DOCUMENTATION AND PHOTOS WHICH INDICATE SCROTAL EDEMA, SCARRING TO SACRUM AND LEFT LEG WITH DISCOLORATION TO FEET, PRESENT ON ADMISSION. RECOMMENDATIONS MADE FOR SKIN PROTECTION. DISCUSSED WITH NURSING STAFF. MD IN AGREEMENT WITH PLAN OF CARE.
--- NOTE | 2021-06-24 11:35 | NUR ---
MS RN NOTES PARACENTESIS NOT PERFORMED DUE TO LOW PLATELETS. PLATELETS NOT AVAILABLE YET PER BLOOD BANK. DR. BRODERICK, SPOKE WITH LAURA LAB STAFF AND THAT SHE CHECKED WITH [facility].
[2021-06-24 16:00] VITALS: BP 141/80
[2021-06-24] MEDS: PROSOURCE / PROSTAT (PYXIS) 30 ML UDC PO SCH (18:24)
--- NOTE | 2021-06-24 19:01 | NUR ---
MS RN NOTES IN BED. AWAKE & RESPONSIVE. ON ROOM AIR. NOT IN ANY DISTRESS. NO SOB NOTED. DENIES ANY PAIN OR DISCOMFORT AT THIS TIME. WITH IV-HL PATENT & INTACT. PM CARE DONE. MONITORED ACCORDINGLY. ALL NEEDS ATTENDED. NO OTHER SIGNIFICANT CHANGE IN CONDITION. CALL LIGHT WITHIN REACH. BED IN LOWEST POSITION. SR UP X 3 WITH BED ALARM ON FOR SAFETY. WILL ENDORSE TO NEXT SHIFT.
--- NOTE | 2021-06-24 19:02 | NUR ---
RN NOTES PATIENT FOR PARACENTESIS TOMORROW. LEFT MESSAGE WITH ULTRASOUND. PLATELET AVAILABLE BUT WILL AT 2300 PER BLOOD BANK. ENDORSED TO NEXT SHIFT.
[2021-06-24 20:00] VITALS: BP 131/88
--- NOTE | 2021-06-24 20:12 | NUR ---
MS-1/HEALTH CARE MARKETING MANAGER PER CAROL ANN DNP TRANSFUSE PLATELETS BEFORE PARACENTESIS TOMORROW. NOT TONIGHT. WILL ENDORSE TO AM SHIFT.
[2021-06-24] MEDS: ZOLPIDEM TARTRATE 5 MG TABLET PO SCH (22:16)
[2021-06-24] MEDS: MORPHINE SULFATE INJ 2 MG/ML DISP.SYRIN IV PRN (22:32)
[2021-06-25] VITALS (8 sets, daily range): BP systolic 135–155; BP diastolic 76–102
[2021-06-25 07:30] LABS: BASOPHILS % (AUTO) 0.7 % (0.0-2.0); EOSINOPHILS % (AUTO) 2.2 % (0.0-6.0); HEMATOCRIT 29 % (39-51); HEMOGLOBIN 9.7 g/dL (13.5-17.5); LYMPHOCYTES # (AUTO) 0.3 K/uL (0.8-4.8); LYMPHOCYTES % (AUTO) 16.6 % (20.0-44.0); MEAN CORPUSCULAR HGB CONC 33 g/dl (31.0-36.0); MEAN CORPUSCULAR VOLUME 88 fL (80-96); MONOCYTES # (AUTO) 0.3 K/uL (0.1-1.30); MONOCYTES % (AUTO) 17.2 % (2.0-12.0); NEUTROPHILS # (AUTO) 1.1 K/uL (1.8-8.9); NEUTROPHILS % (AUTO) 63.3 % (43.0-81.0); RED BLOOD CELL COUNT(AUTO) 3.32 MIL/uL (4.5-6.0)
--- NOTE | 2021-06-25 07:30 | NUR ---
MS AM RN NOTES IN BED. AWAKE & RESPONSIVE. ON ROOM AIR. NOT IN ANY DISTRESS. NO SOB NOTED. DENIES ANY PAIN OR DISCOMFORT AT THIS TIME. WITH RIGHT FA G18 IV-HL FLUSHES WELL, SITE CLEAR. CARDIAC DIET. BEDBOUND. ALL NEEDS ANTICIPATED. CALL LIGHT WITHIN REACH. BED IN LOWEST POSITION. SR UP X 3 WITH BED ALARM ON FOR SAFETY. WILL CONTINUE TO MONITOR.
[2021-06-25 07:33] LABS: PLATELET COUNT (AUTO) 34 K/uL (150-450)
[2021-06-25 07:36] LABS: WHITE BLOOD COUNT (AUTO) 1.8 K/uL (4.3-11.0)
[2021-06-25] MEDS: FUROSEMIDE 40 MG TABLET PO SCH ×2 (08:07→16:37)
[2021-06-25] MEDS: OLANZAPINE 2.5 MG TABLET PO SCH ×2 (08:07→16:37)
[2021-06-25] MEDS: SPIRONOLACTONE 25 MG TABLET PO SCH (08:07)
[2021-06-25] MEDS: RIFAXIMIN 550 MG TABLET PO SCH ×2 (08:07→16:37)
[2021-06-25] MEDS: PANTOPRAZOLE 40 MG TABLET.DR PO SCH (08:07)
[2021-06-25] MEDS: LACTULOSE 10 G/15 ML UDC (PYXIS) PO SCH ×2 (08:08→16:35)
[2021-06-25] MEDS: PROSOURCE / PROSTAT (PYXIS) 30 ML UDC PO SCH ×2 (08:08→16:35)
[2021-06-25 08:56] LABS: EOSINOPHILS % (MANUAL) 1 % (0-4); LYMPHOCYTES % (MANUAL) 14 % (16-48); MONOCYTES % (MANUAL) 12 % (0-11.0); NEUTROPHILS % (MANUAL) 73 (42-76)
--- NOTE | 2021-06-25 09:30 | NUR ---
RN NOTES DUE MEDS GIVEN
--- NOTE | 2021-06-25 09:45 | NUR ---
RN NOTES NOTIFIED DR. BRAEDEN BRODERICK ABOUT RADIOLOGY NOTIFIED ABOUT PLATELETS READY FOR TRANSFUSION. NO ONE ANSWERING, I CALLED 4 TIMES. I LEFT A MESSAGE. PER DR. BRODERICK TO TRANSFUSE PLATELETS.
--- NOTE | 2021-06-25 12:20 | NUR ---
ELENA NOTES 1 UNIT PLATELET STARTED. Addendum: 06/25/21 at 1302 by ELENA MCCULLOUGH RN ADDENDUM ALL BARCODES FUNCTIONING EXCEPT PRODUCT BARCODE WOULD NOT SCAN. VERIFIED AND OVERRIDE WITH ALMA MADDEN NURSE.
--- NOTE | 2021-06-25 12:56 | NUR ---
RN NOTES 1 UNIT PLATELET TRANSFUSED. NO REACTIONS NOTED.
[2021-06-25] MEDS ORDERED: K PHOS NEUTRAL 250 MG TABLET PO ONE (16:00)
--- NOTE | 2021-06-25 20:00 | NUR ---
MS RN OPENING NOTES Patient is A&Ox3, seems to be anxious constantly wanting staff by his side. Reassured that he will be able to see staff through window and use call light as needed. In no acute distress. Moderate discomfort from ascites but tolerable at this time. Denies SOB or respiratory distress. Will continue to monitor.
[2021-06-25] MEDS: MORPHINE SULFATE INJ 2 MG/ML DISP.SYRIN IV PRN (21:07)
[2021-06-25] MEDS: ZOLPIDEM TARTRATE 5 MG TABLET PO SCH (21:58)
[2021-06-25] MEDS ORDERED: ACETAMINOPHEN 325 MG TABLET PO ONE (22:00)
--- NOTE | 2021-06-25 22:00 | NUR ---
Patient's temperature 101.6 MD made aware of no tylenol PRN order d/t liver problems. B/P 146/102, pt reports he is in 9/10 abdominal pain, morphine given B/P down to 147/76. Temp still 100.0 after cooling measures. MD put in order for tylenol 650mg one time only for fever.
[2021-06-26] MEDS: LORAZEPAM 1 MG TABLET PO PRN ×3 (00:09→23:39)
--- NOTE | 2021-06-26 00:24 | NUR ---
temp down to 99.2
[2021-06-26 04:00] VITALS: BP 116/80
[2021-06-26] MEDS: MORPHINE SULFATE INJ 2 MG/ML DISP.SYRIN IV PRN ×2 (05:15→19:46)
--- NOTE | 2021-06-26 05:30 | NUR ---
Patient transferred to room 328-1 per protocol. Patient in stable condition. A&Ox3. Vitals prior to transfer: 98.6, HR 89, RR 20, O2 95%, B/P 116/80. Daily weight 200lbs. Patient c/o 8/10 pain to feet -morphine 2mg given at 0515. Report given to ELENA Sifuentes.
[2021-06-26 05:45] VITALS: BP 127/79
--- NOTE | 2021-06-26 05:47 | NUR ---
RN NOTES RECEIVED PATIENT FROM ROBBIE, ASLEEP, AROUSEABLE BY VOICE AND TOUCH, ROOM AIR, NO COMPLAIN OF PAIN, CONTRACTED BUE AND BLE, ABDOMINAL DISTENTION, FIRM, INCONTINENT OF BOWEL AND BLADDER, AFEBRILE, LATEST TEMP 97.0F, VS STABLE, TYLENOL GIVEN X1, CAUTION WITH TYLENOL, HX OF LIVER DISEASE
--- NOTE | 2021-06-26 07:15 | NUR ---
MS RN OPENING NOTE RECEIVED PATIENT ON BED, ASLEEP BUT AROUSABLE, ALERT AND ORIENTED X 2-3. ABLE TO MAKE NEEDS KNOWN. WITH NOTED GLOBULAR ABDOMEN WITH SHALLOW BUT REGULAR BREATHING. PATIENT SATURATING AT 100% ON ROOM AIR. WITH NO SIGNS OF RESPIRATORY DISTRESS. WITH RIGHT FOREARM IV ACCESS OF G18 WITH ON SALINE LOCK, PATENT AND INTACT. AWAITING AM BLOOD DRAW. NOTED CONTRACTURE ON ALL EXTREMITIES. CALL LIGHT WITHIN REACH AT ALL TIMES. SAFETY PRECAUTIONS MAINTAINED WITH BED LOCKED AND AT LOWEST POSITION. WILL CONTINUE TO MONITOR.
[2021-06-26] MEDS: PANTOPRAZOLE 40 MG TABLET.DR PO SCH (08:50)
[2021-06-26] MEDS: RIFAXIMIN 550 MG TABLET PO SCH ×2 (08:51→17:51)
[2021-06-26 08:56] LABS: BASOPHILS % (AUTO) 0.4 % (0.0-2.0); EOSINOPHILS % (AUTO) 1.7 % (0.0-6.0); HEMATOCRIT 29 % (39-51); HEMOGLOBIN 9.6 g/dL (13.5-17.5); LYMPHOCYTES # (AUTO) 0.3 K/uL (0.8-4.8); LYMPHOCYTES % (AUTO) 7.7 % (20.0-44.0); MEAN CORPUSCULAR HGB CONC 33 g/dl (31.0-36.0); MEAN CORPUSCULAR VOLUME 89 fL (80-96); MONOCYTES # (AUTO) 0.4 K/uL (0.1-1.30); MONOCYTES % (AUTO) 9.7 % (2.0-12.0); NEUTROPHILS # (AUTO) 3.6 K/uL (1.8-8.9); NEUTROPHILS % (AUTO) 80.5 % (43.0-81.0); RED BLOOD CELL COUNT(AUTO) 3.28 MIL/uL (4.5-6.0); WHITE BLOOD COUNT (AUTO) 4.5 K/uL (4.3-11.0)
[2021-06-26] MEDS: OLANZAPINE 2.5 MG TABLET PO SCH ×2 (09:00→17:51)
[2021-06-26] MEDS: LACTULOSE 10 G/15 ML UDC (PYXIS) PO SCH ×2 (09:00→17:00)
[2021-06-26] MEDS: PROSOURCE / PROSTAT (PYXIS) 30 ML UDC PO SCH ×2 (09:00→17:00)
[2021-06-26 09:03] LABS: PLATELET COUNT (AUTO) 39 K/uL (150-450)
[2021-06-26 09:09] LABS: CALCIUM, SERUM 7.5 mg/dL (8.5-10.1); CREATININE 0.7 mg/dL (0.6-1.3); POTASSIUM 3.6 mmol/L (3.5-5.1)
--- NOTE | 2021-06-26 09:50 | NUR ---
MS RN NOTE PATIENT SEEN BY DR. BRODERICK. MD NOTIFIED OF PATIENT REFUSING SOME MEDICATIONS AND ALSO LATEST PLATELET RESULT. WITH ORDER FOR BLOOD TRANSFUSION. AWAITING AVAILABILITY. MONITORED FOR SIGNS AND SYMPTOMS OF BLEEDING. COMFORT MEASURES PROVIDED. WILL CONTINUE TO MONITOR PATIENT.
--- NOTE | 2021-06-26 16:40 | NUR ---
PLT 39, STILL LOW FOR PROCEDURE.
[2021-06-26] MEDS: FUROSEMIDE 40 MG TABLET PO SCH (17:00)
--- NOTE | 2021-06-26 17:11 | NUR ---
MS RN NOTE PATIENT WITH TEMPERATURE OF 100.4F TAKEN PER [place]. PATIENT IS ALERT AND ORIENTED WITH NO SIGNS OF DISTRESS. DR. BRODERICK NOTIFIED WITH ORDER TO DO PROCALCITONIN, CHEST X-RAY AND TO DO COOLING MEASURES. COMFORT MEASURES PROVIDED. IN STABLE CONDITION. WILL CONTINUE TO MONITOR PATIENT.
--- NOTE | 2021-06-26 19:30 | NUR ---
MS RN OPENING NOTES Patient in 08/05 pain to abdomen and feet. Heels offloaded. PRN morphine given. Alerted patient that he will have a platelet infusion d/t low platelets so that hopefully he may have a paracentesis tomorrow -patient signed consent and father Bertin Abbasi"Nba MINAYA called and gave verbal consent as well for platelet infusion.
[2021-06-26 20:00] VITALS: BP 148/89
--- NOTE | 2021-06-26 20:17 | NUR ---
platelet transfusion started at 2014, pre-transfusion vital signs: 148/89, O2 98%, HR 96, temp 98.2, RR 18. Pain 3/10, but tolerable. Will monitor for reactions.
[2021-06-26 20:30] VITALS: BP 125/82
--- NOTE | 2021-06-26 20:30 | NUR ---
Patient VSS, alert and oriented x3. No reaction noted.
[2021-06-26 21:15] VITALS: BP 120/72
--- NOTE | 2021-06-26 21:15 | NUR ---
Patient awake, A&Ox3. Temperature elevated 100.6 has been up and down since last night -orders/labs pending. Kept on cooling measures and will continue to monitor. No signs of distress. All other VS WNL.
--- NOTE | 2021-06-26 22:30 | NUR ---
Notified of critical procalcitonin level 2.29 new order STAT urinalysis -okay to abi cath.
[2021-06-26] MEDS: ZOLPIDEM TARTRATE 5 MG TABLET PO SCH (22:39)
[2021-06-26 23:07] VITALS: BP 125/91
--- NOTE | 2021-06-26 23:13 | NUR ---
STAT urinalysis collected. MD ben alex cath. Looks yellow orange in color slightly cloudy. Called Lab for pickup.
[2021-06-26] MEDS ORDERED: PIPERACILLIN /TAZOBACTAM 2.25 G VIAL IV ONE (23:26)
[2021-06-26 23:33] LABS: BILIRUBIN,URINE SMALL (NEGATIVE); COLOR,URINE YELLOW (YELLOW); LEUKOCYTE ESTERASE ,URINE TRACE (NEGATIVE); NITRITE, URINE NEGATIVE (NEGATIVE); PROTEIN,URINE TRACE mg/dl (NEGATIVE); UGLUCOSE NEGATIVE (NEGATIVE); UROBILINOGEN,URINE >=8.0 EU/dL (0.2)
[2021-06-26] MEDS: ZOSYN IVPB 4.5 G in IV D5W 50ml IV SCH (23:39)
[2021-06-27 01:04] LABS: WBC,URINE 21-50 /HPF (0-3)
[2021-06-27 01:05] LABS: BACTERIA,URINE Few /HPF (None Seen); MUCUS,URINE Few /LPF (None Seen); SQUAMOUS EPITHELIAL CELL,UR Moderate /HPF (None Seen)
[2021-06-27] MEDS: MORPHINE SULFATE INJ 2 MG/ML DISP.SYRIN IV PRN ×3 (01:45→13:46)
--- NOTE | 2021-06-27 01:54 | NUR ---
Patient refuses pictures of sacrum even after morphine administration for abdominal pain. Patient states "you already did too much with me and it was painful". Referring to straight catheterizing and patient tolerates repositioning poorly d/t painful contractures.
--- NOTE | 2021-06-27 02:51 | NUR ---
98.2 temp -fever resolved.
[2021-06-27] MEDS ORDERED: PIPERACILLIN /TAZOBACTAM 2.25 G VIAL IV ONE (05:45)
[2021-06-27] MEDS: ZOSYN IVPB 4.5 G in IV D5W 50ml IV SCH (06:00)
[2021-06-27 06:40] LABS: BASOPHILS % (AUTO) 0.4 % (0.0-2.0); EOSINOPHILS % (AUTO) 0.8 % (0.0-6.0); HEMATOCRIT 27 % (39-51); HEMOGLOBIN 9.1 g/dL (13.5-17.5); LYMPHOCYTES # (AUTO) 0.5 K/uL (0.8-4.8); MEAN CORPUSCULAR HGB CONC 34 g/dl (31.0-36.0); MEAN CORPUSCULAR VOLUME 88 fL (80-96); MONOCYTES # (AUTO) 0.8 K/uL (0.1-1.30); MONOCYTES % (AUTO) 11.7 % (2.0-12.0); NEUTROPHILS # (AUTO) 5.4 K/uL (1.8-8.9); NEUTROPHILS % (AUTO) 80.1 % (43.0-81.0); RED BLOOD CELL COUNT(AUTO) 3.07 MIL/uL (4.5-6.0); WHITE BLOOD COUNT (AUTO) 6.8 K/uL (4.3-11.0)
--- NOTE | 2021-06-27 06:42 | NUR ---
MS RN CLOSING NOTES Patient is A&Ox2. Temperature up and down, cooling measures in place. Patient tolerated platelet infusion well, tolerating IV ABX well. Abdomen very distended and painful. Hopefully patient to have paracentesis if platelet levels have improved. Urine culture still pending.
[2021-06-27 06:57] LABS: CALCIUM, SERUM 7.2 mg/dL (8.5-10.1); CREATININE 0.6 mg/dL (0.6-1.3); POTASSIUM 3.4 mmol/L (3.5-5.1)
--- NOTE | 2021-06-27 07:36 | NUR ---
MS RN OPENING NOTE RECEIVED PATIENT ON BED, ASLEEP BUT AROUSABLE, ALERT AND ORIENTED X 2-3. ABLE TO MAKE NEEDS KNOWN. WITH NOTED GLOBULAR ABDOMEN WITH SHALLOW BUT EVEN AND REGULAR BREATHING. PATIENT SATURATING AT 100% ON ROOM AIR. WITH NO SIGNS OF RESPIRATORY DISTRESS. WITH RIGHT FOREARM IV ACCESS OF G20 WITH ON SALINE LOCK, PATENT AND INTACT. NOTED CONTRACTURE ON ALL EXTREMITIES. CALL LIGHT WITHIN REACH AT ALL TIMES. SAFETY PRECAUTIONS MAINTAINED WITH BED LOCKED AND AT LOWEST POSITION. WILL CONTINUE TO MONITOR.
[2021-06-27 08:00] VITALS: BP 145/82
[2021-06-27 08:11] LABS: PLATELET COUNT (AUTO) 45 K/uL (150-450)
--- NOTE | 2021-06-27 08:51 | NUR ---
RN NOTE LAB CALLED FOR CRITICAL PLATELET LAB, NOTIFIED, NO NEW ORDER, CONTINUE TO MONITOR
[2021-06-27] MEDS: SPIRONOLACTONE 25 MG TABLET PO SCH (09:11)
[2021-06-27] MEDS: LACTULOSE 10 G/15 ML UDC (PYXIS) PO SCH ×2 (09:11→16:07)
[2021-06-27] MEDS: PROSOURCE / PROSTAT (PYXIS) 30 ML UDC PO SCH ×2 (09:11→16:07)
[2021-06-27] MEDS: FUROSEMIDE 40 MG TABLET PO SCH ×2 (09:11→16:12)
[2021-06-27] MEDS: OLANZAPINE 2.5 MG TABLET PO SCH ×2 (09:11→16:07)
[2021-06-27] MEDS: PANTOPRAZOLE 40 MG TABLET.DR PO SCH (09:11)
[2021-06-27] MEDS: RIFAXIMIN 550 MG TABLET PO SCH ×2 (09:11→16:07)
[2021-06-27] MEDS ORDERED: POTASSIUM CHLORIDE 20 MEQ TAB.PRT.SR PO SCH (10:30)
[2021-06-27] MEDS ORDERED: PIPERACILLIN /TAZOBACTAM 3.375 G in IV D5W 50 ML IV SCH (12:00)
[2021-06-27] MEDS: PIPERACILLIN /TAZOBACTAM 3.375 G in IV D5W 100 ML IV SCH ×2 (13:35→22:59)
[2021-06-27] MEDS ORDERED: ALBUMIN 5% 25 GM in PREMIX 1 EA IV ONE (14:30)
--- NOTE | 2021-06-27 14:30 | NUR ---
RN NOTE PATIENT IS POST PARACENTESIS PROCEDURE, 5 LITERS REMOVED. PATIENT TOLERATED WELL. PATIENT HAS ORDER FOR POST ALBUMIN. WILL CONTINUE TO MONITOR
[2021-06-27] MEDS ORDERED: ALBUMIN 25% 25 GM in PREMIX 1 EA IV ONE ×2 (15:00→20:30)
[2021-06-27 16:00] VITALS: BP 146/78
--- NOTE | 2021-06-27 18:28 | NUR ---
MS RN CLOSING NOTE PATIENT ON BED, ASLEEP BUT AROUSABLE, ALERT AND ORIENTED X 2-3. ABLE TO MAKE NEEDS KNOWN. WITH NOTED GLOBULAR ABDOMEN WITH SHALLOW BUT EVEN AND REGULAR BREATHING. PATIENT SATURATING AT 100% ON ROOM AIR. WITH NO SIGNS OF RESPIRATORY DISTRESS. WITH RIGHT FOREARM IV ACCESS OF G20 WITH ON SALINE LOCK, PATENT AND INTACT. NOTED CONTRACTURE ON ALL EXTREMITIES. ALL MEDICATIONS GIVEN ORDERED. PATIENT DOES NOT COMPLAIN OF PAIN AT THIS TIME. PATIENT IS POST PARACENTESES AND TOLERATED WELL. CALL LIGHT WITHIN REACH AT ALL TIMES. SAFETY PRECAUTIONS MAINTAINED WITH BED LOCKED AND AT LOWEST POSITION. WILL ENDORSE TO ONCOMING SHIFT
--- NOTE | 2021-06-27 20:00 | NUR ---
Patient is awake, A&Ox3. VSS. Reports feeling relieved and with no abdominal pain after paracentesis earlier. In good mood. No signs of distress. Afebrile. Will continue to monitor.
[2021-06-27] MEDS: ZOLPIDEM TARTRATE 5 MG TABLET PO SCH (22:59)
[2021-06-28] MEDS: PIPERACILLIN /TAZOBACTAM 3.375 G in IV D5W 100 ML IV SCH ×3 (05:59→21:37)
[2021-06-28 06:57] LABS: CALCIUM, SERUM 7.2 mg/dL (8.5-10.1); CREATININE 0.6 mg/dL (0.6-1.3); POTASSIUM 3.1 mmol/L (3.5-5.1)
--- NOTE | 2021-06-28 07:00 | NUR ---
MS RN CLOSING NOTES Patient awake, A&Ox3. Tolerated IV albumin and ABX well. No other issues overnight. Slept well though easy to rouse. No signs of bleeding.
[2021-06-28 08:00] VITALS: BP 124/79
[2021-06-28] MEDS: PROSOURCE / PROSTAT (PYXIS) 30 ML UDC PO SCH ×2 (09:00→17:28)
[2021-06-28] MEDS: LACTULOSE 10 G/15 ML UDC (PYXIS) PO SCH ×2 (11:05→17:27)
[2021-06-28] MEDS: LORAZEPAM 1 MG TABLET PO PRN (11:05)
[2021-06-28] MEDS: POTASSIUM CHLORIDE 20 MEQ TAB.PRT.SR PO SCH ×2 (11:05→12:31)
[2021-06-28] MEDS: PANTOPRAZOLE 40 MG TABLET.DR PO SCH (11:06)
[2021-06-28] MEDS: OLANZAPINE 2.5 MG TABLET PO SCH ×2 (11:06→17:27)
[2021-06-28] MEDS: SPIRONOLACTONE 25 MG TABLET PO SCH (11:06)
[2021-06-28] MEDS: RIFAXIMIN 550 MG TABLET PO SCH ×2 (11:06→17:27)
[2021-06-28] MEDS: FUROSEMIDE 40 MG TABLET PO SCH ×2 (11:06→17:28)
[2021-06-28] MEDS: MORPHINE SULFATE INJ 2 MG/ML DISP.SYRIN IV PRN ×2 (13:41→19:58)
[2021-06-28 16:00] VITALS: BP 119/80
[2021-06-28] MEDS: CYCLOBENZAPRINE 10 MG TABLET PO PRN (19:58)
[2021-06-28 20:37] VITALS: BP 139/67
[2021-06-28] MEDS: ZOLPIDEM TARTRATE 5 MG TABLET PO SCH (21:37)
[2021-06-29] MEDS: ONDANSETRON HCL/PF 4 MG/2 ML VIAL IVP PRN ×2 (00:03→05:41)
--- NOTE | 2021-06-29 00:11 | NUR ---
PATIENT C/O NAUSEA AND ANXIETY; ADMINISTERED ZOFRAN AND LORAZEPAM ORDERED PRN PER PATIENT REQUEST.
[2021-06-29] MEDS: LORAZEPAM 1 MG TABLET PO PRN ×2 (00:13→15:38)
[2021-06-29] MEDS: MORPHINE SULFATE INJ 2 MG/ML DISP.SYRIN IV PRN ×3 (02:04→14:14)
[2021-06-29] MEDS: PIPERACILLIN /TAZOBACTAM 3.375 G in IV D5W 100 ML IV SCH ×2 (05:39→14:02)
[2021-06-29] MEDS: CYCLOBENZAPRINE 10 MG TABLET PO PRN (06:22)
[2021-06-29 06:31] LABS: CREATININE 0.6 mg/dL (0.6-1.3); POTASSIUM 3.7 mmol/L (3.5-5.1)
--- NOTE | 2021-06-29 07:35 | NUR ---
MS RN OPENING NOTES RECEIVED PATIENT AWAKE IN BED IN NO ACUTE SIGNS OF DISTRESS. HOB ELEVATED. A/O X 2-3. ABLE TO MAKE NEEDS KNOWN AND ASKED TO TURN HIS TV ON, NO C/O PAIN AT THIS TIME. ON ROOM AIR, BREATHING EVEN AND UNLABORED. ABDOMEN REMAINS DISTENDED. IV SL ON RIGHT FOREARM G#20 PATENT AND INTACT. SAFETY PRECAUTIONS IN PLACE: BED IN LOWEST LOCKED POSITION WITH S/R UP X2. CALL LIGHT WITHIN REACH. WILL CONTINUE TO MONITOR PT ACCORDINGLY.
[2021-06-29 08:00] VITALS: BP 158/83
[2021-06-29] MEDS: PANTOPRAZOLE 40 MG TABLET.DR PO SCH (08:18)
[2021-06-29] MEDS: PROSOURCE / PROSTAT (PYXIS) 30 ML UDC PO SCH ×2 (08:38→16:16)
[2021-06-29] MEDS: RIFAXIMIN 550 MG TABLET PO SCH ×2 (08:38→16:16)
[2021-06-29] MEDS: OLANZAPINE 2.5 MG TABLET PO SCH ×2 (08:38→16:16)
[2021-06-29] MEDS: LACTULOSE 10 G/15 ML UDC (PYXIS) PO SCH ×2 (08:38→16:16)
[2021-06-29] MEDS: FUROSEMIDE 40 MG TABLET PO SCH ×2 (08:38→16:16)
[2021-06-29] MEDS: SPIRONOLACTONE 25 MG TABLET PO SCH (08:38)
--- NOTE | 2021-06-29 14:15 | NUR ---
RN NOTES PT C/O ACHING AND PULLING PAIN ON ABDOMEN AND BUTTOCKS. PRN MORPHINE 2MG IVP ADMINISTERED AT 1414. WILL CONTINUE TO MONITOR AND REASSESS PT.
--- NOTE | 2021-06-29 15:15 | NUR ---
RN NOTES PT FOR DISCHARGE TO [facility] THIS AFTERNOON. P/U TIME IS 1700. CALLED AND REPORT GIVEN TO CHARGE NURSE DONTA. PATIENT'S FATHER SAME INFORMED OF PT'S TRANSFER BACK TO [facility].
--- NOTE | 2021-06-29 15:41 | NUR ---
RN NOTES PT NOTED ANXIOUS AND KEEPS YELLING. REQUESTED FOR HIS ATIVAN. ATIVAN 0.5 MG TAB GIVEN AT 1538. WILL CONTINUE TO MONITOR PT.
--- NOTE | 2021-06-29 17:28 | NUR ---
RN DISCHARGED NOTES PT DISCHARGED TO [facility] IN STABLE CONDITION. A/O X3. ABLE TO VERBALIZED NEEDS. V/S TAKEN, STABLE AND RECORDED. PHOTOS OF SKIN ISSUES TAKEN AND FILED ON HIS CHART. PT HAS ONLY CELLPHONE I-PHONE S BELONGING AND HANDED PERSONALLY TO EMT. REPORT/DISCHARGED INSTRUCTIONS GIVEN EARLIER TO MARITA LANDERS OF [facility] AND VERBALIZED UNDERSTANDING. PT'S IV ACCESS ON RFA G# [address], PT WILL CONTINUE IV ABX ZOSYN 3.375MG Q 8HRS X 3 DAYS MORE. PT LEFT UNIT AT 1725 ACCOMPANIED BY 2 EMT'S FROM [facility]. CHARGE NURSE AWARE OF DISCHARGE.
== END 2021-06-29 17:44 ==
LOC: ER 13:22 → MEDSG1 16:38 → MED 06-26 05:29
PROVIDERS: ADMIT Nurse Practitioner Acute Care; ATTEND Nurse Practitioner Acute Care
PROC: 30233R1 Transfusion of Nonautologous Platelets into Peripheral Vein, Percutaneous Approach (ICD-10-PCS; 2021-06-23)
PROC: 0W9G3ZZ Drainage of Peritoneal Cavity, Percutaneous Approach (ICD-10-PCS; principal; 2021-06-27)
DX: K74.60 Unspecified cirrhosis of liver (principal); J15.6 Pneumonia due to other Gram-negative bacteria; G20 Parkinson's disease; D69.59 Other secondary thrombocytopenia; E44.0 Moderate protein-calorie malnutrition; K72.90 Hepatic failure, unspecified without coma; F25.9 Schizoaffective disorder, unspecified; E83.01 Wilson's disease; J15.9 Unspecified bacterial pneumonia; K76.6 Portal hypertension; R18.8 Other ascites; E66.9 Obesity, unspecified; E87.6 Hypokalemia; D63.8 Anemia in other chronic diseases classified elsewhere; I10 Essential (primary) hypertension; K40.90 Unilateral inguinal hernia, without obstruction or gangrene, not specified as recurrent; Z86.73 Personal history of transient ischemic attack (TIA), and cerebral infarction without residual deficits; K31.89 Other diseases of stomach and duodenum; N43.3 Hydrocele, unspecified; Z20.822 Contact with and (suspected) exposure to COVID-19; K21.9 Gastro-esophageal reflux disease without esophagitis; R13.10 Dysphagia, unspecified; M62.562 Muscle wasting and atrophy, not elsewhere classified, left lower leg; M62.561 Muscle wasting and atrophy, not elsewhere classified, right lower leg; Z79.899 Other long term (current) drug therapy; D72.819 Decreased white blood cell count, unspecified; N62 Hypertrophy of breast; Y95 Nosocomial condition; Z68.33 Body mass index [BMI] 33.0-33.9, adult; Z74.01 Bed confinement status; R79.89 Other specified abnormal findings of blood chemistry
CPT/HCPCS: 36415; 71045-TC; 76942-TC; 80048-TC; 80076-TC; 81001; 82140-TC; 83690-TC; 83735-TC; 84100-TC; 84484-TC; 85025-TC; 85610-TC; 85730-TC; 86850-TC; 86900-TC; 87081-TC; 87086-TC; A4216; G0378; J2270; J2405; J2543; J3480; J7030; J7050; J7060; P9034; P9047; U0003